=== PATIENT | female | born 1970 | race African-American/Black ===

== ENCOUNTER 2016-12-11 13:39 | Emergency (ER) | payer BC, OTHER ==
[2016-12-11 15:38] LABS: Basophils % (Auto) 0.5 % (0.0-1.8); Eosinophils % (Auto) 0.4 % (0.0-4.3); Hematocrit 39.4 % (30.3-42.9); Hemoglobin 13.3 gm/dl (10.1-14.3); Mean Corpuscular HGB Conc 34 % (30-34); Mean Corpuscular Hemoglobin 29 pg (28-32); Mean Corpuscular Volume 86 fl (79-97); Platelet Count 259 K/mm3 (140-440); Red Blood Count 4.58 M/mm3 (3.65-5.03); Red Cell Distribution Width 14.6 % (13.2-15.2); White Blood Count 9.3 K/mm3 (4.5-11.0)
[2016-12-11 16:00] LABS: Alanine Aminotransferase 20 units/L (7-56); Albumin 4.3 g/dL (3.9-5); Albumin/Globulin Ratio 1.1 %; Alkaline Phosphatase 80 units/L (35-129); Anion Gap 19 mmol/L; Bilirubin,Total 0.3 mg/dL (0.1-1.2); Blood Urea Nitrogen 9 mg/dL (7-17); Calcium 9.6 mg/dL (8.4-10.2); Carbon Dioxide 31 mmol/L (22-30); Glucose 144 mg/dL (65-100); Lipase 15 units/L (13-60); Potassium 4.3 mmol/L (3.6-5.0); Sodium 134 mmol/L (137-145); Total Protein 8.2 g/dL (6.3-8.2)
--- NOTE | 2016-12-11 18:02 | Emergency Department Report ---
ED Abdominal Pain HPI - General Chief Complaint: Abdominal Pain Stated Complaint: CONSTIPATION/ABD PAIN Time Seen by Provider: 12/11/16 16:48 Source: patient, family, EMS (ems notes not available at time of chart dictation), old records reviewed Mode of arrival: Stretcher Limitations: Language Barrier - History of Present Illness Initial Comments: This is a 46-year-old female, previously unknown to me. Patient had an outpatient hemorrhoidectomy performed on December 06. Presents to the ER with abdominal pain, abdominal distention, decreased defecation. Symptoms present for the past and a half to 2 days. They're constant. Patient was seen at another hospital yesterday, [facility], and presumptively diagnosed with constipation. She was discharged with magnesium citrate, and states that her abdomen is getting bigger, and she has mild nausea , and is not defecating. She reports that she is not . 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 MD Complaint: abdominal pain -: Gradual Location: diffuse Severity: moderate Severity scale (0 -10): 9 Quality: cramping Consistency: constant Improves With: rest Associated Symptoms: nausea, constipation - Related Data Allergies Allergy/AdvReac Type Severity Reaction Status Date / Time No Known Allergies Allergy Unverified 11/23/14 11:06 ED Review of Systems ROS: Stated complaint: CONSTIPATION/ABD PAIN Other details as noted in HPI Constitutional: malaise, weakness Eyes: denies: vision change ENT: denies: epistaxis Respiratory: denies: cough Cardiovascular: denies: chest pain Gastrointestinal: abdominal pain, constipation Genitourinary: as per HPI, other (urinary retention) Musculoskeletal: back pain Skin: denies: lesions Neurological: weakness Psychiatric: anxiety ED Past Medical Hx - Past Medical History Hx Hypertension: Yes - Surgical History Additional Surgical History: hemmorrhoid procedure ED Physical Exam - General Limitations: No Limitations General appearance: alert, in no apparent distress - Head Head exam: Present: atraumatic, normocephalic - Eye Eye exam: Present: normal appearance, EOMI. Absent: nystagmus - ENT ENT exam: Present: normal exam, normal orophraynx, mucous membranes moist, normal external ear exam - Neck Neck exam: Present: normal inspection, full ROM. Absent: tenderness, meningismus - Respiratory Respiratory exam: Present: normal lung sounds bilaterally. Absent: respiratory distress, wheezes, rales, rhonchi, stridor, chest wall tenderness - Cardiovascular Cardiovascular Exam: Present: regular rate, normal rhythm, normal heart sounds. Absent: bradycardia, tachycardia, irregular rhythm, systolic murmur, diastolic murmur, rubs, gallop - GI/Abdominal GI/Abdominal exam: Present: soft, distended, tenderness. Absent: pulsatile mass - Rectal Rectal exam: Present: normal inspection (hemorrhoidectomy site appears to be clean, mild ecchymosis noted. No obvious abscess, fluctuance.), normal rectal tone, other (good rectal tone, stool, from the rectal vault. During the rectal examination, I am escorted by nursing jefferson pauline) - Extremities Exam Extremities exam: Present: normal inspection, full ROM, normal capillary refill. Absent: tenderness, pedal edema, joint swelling, calf tenderness - Back Exam Back exam: Present: normal inspection, full ROM. Absent: tenderness, CVA tenderness (R), CVA tenderness (L), muscle spasm, paraspinal tenderness, vertebral tenderness - Neurological Exam Neurological exam: Present: alert, oriented X3, other (Extraocular movements intact. Tongue midline. No facial droop. Facial sensation intact to light touch in the V1, V2, V3 distribution bilaterally. 5 and 5 strength in 4 extremities.. Sensation is intact to light touch in 4 extremities.). Absent: motor sensory deficit - Psychiatric Psychiatric exam: Present: normal affect, normal mood - Skin Skin exam: Present: warm, dry, intact, normal color. Absent: rash ED Course Vital Signs 12/11/16 12/11/16 12/11/16 14:32 16:30 16:35 Temperature 98.1 F Pulse Rate 78 92 H Respiratory 14 20 18 Rate Blood Pressure 133/79 128/85 [Left] O2 Sat by Pulse 99 98 99 Oximetry 12/11/16 18:14 Temperature Pulse Rate Respiratory 18 Rate Blood Pressure [Left] O2 Sat by Pulse Oximetry - Reevaluation(s) Reevaluation #1: 12/11/16 18:00 Differential diagnosis: Constipation, obstipation, fecal impaction, bowel obstruction Assessment and plan: 46-year-old female with abdominal pain, distention, decreased defecation. Concerning for SBO. Plain films suggest numerous air- fluid levels, concerning for SBO. Patient will be given IV fluids, nausea medication, pain medication. CT scan with IV and oral contrast is ordered. We will reassess after scan has resulted. Patient reports not being . She states that she has not had a menstruation for 2 years. Reevaluation #2: 12/11/16 18:01 SODIUM 134 potassium 4.3 chloride 88.0 a Reevaluation #3: 12/11/16 21:39 case d/w Dr Camarillo, general surgeon for this hospital. ct findings were specifically discussed with him. he recommends that I contact the patient's general surgeon, Dr Clair Gonzales; [phone] Reevaluation #4: 12/11/16 22:17 case d/w Dr Clair Gonzales, patient's surgeon. Patient is most likely severely constipated. She tolerated oral contrast without really vomiting it up. He states it is acceptable and recommends to perform a soapsuds enema. He further reports that he can follow the patient up tomorrow morning at 9:00. Reevaluation #5: 12/11/16 23:24 patient was manually disimpacted by myself with great success. She had a large bowel movement with administration of a soapsuds enema. No active vomiting. Tolerated oral contrast without difficulty. She has closely arranged outpatient follow-up with her colorectal surgeon in the morning. Plan of care was discussed extensively with the patient's daughter, who verbalized understanding. ED Medical Decision Making - Lab Data Result diagrams: 12/11/16 15:09 12/11/16 15:09 Vital Signs 12/11/16 12/11/16 12/11/16 14:32 16:30 16:35 Temperature 98.1 F Pulse Rate 78 92 H Respiratory 14 20 18 Rate Blood Pressure 133/79 128/85 [Left] O2 Sat by Pulse 99 98 99 Oximetry Lab Results 12/11/16 12/11/16 Range/Units 15:09 15:09 WBC 9.3 (4.5-11.0) K/mm3 RBC 4.58 (3.65-5.03) M/mm3 Hgb 13.3 (10.1-14.3) gm/dl Hct 39.4 (30.3-42.9) % MCV 86 (79-97) fl MCH 29 (28-32) pg MCHC 34 (30-34) % RDW 14.6 (13.2-15.2) % Plt Count 259 (140-440) K/mm3 Lymph % (Auto) 12.4 L (13.4-35.0) % [place] % (Auto) 8.6 H (0.0-7.3) % Eos % (Auto) 0.4 (0.0-4.3) % Baso % (Auto) 0.5 (0.0-1.8) % Lymph # 1.2 (1.2-5.4) K/mm3 [place] # 0.8 (0.0-0.8) K/mm3 Eos # 0.0 (0.0-0.4) K/mm3 Baso # 0.0 (0.0-0.1) K/mm3 Seg Neutrophils % 78.1 H (40.0-70.0) % Seg Neutrophils # 7.3 (1.8-7.7) K/mm3 Carbon Dioxide 31 H (22-30) mmol/L BUN 9 (7-17) mg/dL Creatinine 0.5 L (0.7-1.2) mg/dL Estimated GFR > 60 ml/min BUN/Creatinine Ratio 18.00 % Glucose 144 H (65-100) mg/dL Calcium 9.6 (8.4-10.2) mg/dL Total Bilirubin 0.3 (0.1-1.2) mg/dL AST 19 (5-40) units/L ALT 20 (7-56) units/L Alkaline Phosphatase 80 (35-129) units/L Total Protein 8.2 (6.3-8.2) g/dL Albumin 4.3 (3.9-5) g/dL Albumin/Globulin Ratio 1.1 % Lipase 15 (13-60) units/L Critical care attestation.: If time is entered above; I have spent that time in minutes in the direct care of this critically ill patient, excluding procedure time. ED Disposition Clinical Impression: Constipation, Urinary obstruction Disposition: DISCHARGED TO HOME OR SELFCARE Is pt being admited?: No Does the pt Need Aspirin: No Condition: Stable Instructions: Acute Urinary Retention in Women (ED), Abdominal Pain (ED) Additional Instructions: Follow up with her colorectal surgeon, Dr. Douglas, tomorrow morning, between 9 AM to 9:30 AM. Office Locationdr gonzales [address] [place] [address], [address] [place] [address] Keep the Phillips catheter leg bag in place, and follow-up with a primary care doctor, colorectal surgeon, or urology specialist within the next week for a trial of void with Phillips catheter. Dr. Vo is a local primary care urology specialist. Dr. Duenas is a local primary care doctor. Return to the ER right away with new pain, worsened pain, migration of pain, fevers or chills, intractable nausea or vomiting, inability to tolerate liquid feeds, recurrent urinary retention. Referrals: ELIO SCHAFER MD [Staff Physician] - 3-5 Days PRIMARY MD MICHAEL [Primary Care Provider] - 3-5 Days MARTHA DENTON MD [Staff Physician] - 3-5 Days
[2016-12-11] MEDS: MORPHINE IV ONE (18:14)
[2016-12-11] MEDS: ZOFRAN IV ONE ×2 (18:15→21:16)
[2016-12-11] MEDS: NACL 0.9% 1000 ML 1,000 ML IV ONE (18:22)
[2016-12-11] MEDS: NACL ONE (20:45)
--- NOTE | 2016-12-11 21:20 | Cat Scan Report ---
FINAL REPORT PROCEDURE: CT ABDOMEN PELVIS W CON TECHNIQUE: Computerized axial tomography of the abdomen and pelvis was performed after the IV injection of iodinated nonionic contrast. HISTORY: abdominal pain, distention, possible sbo COMPARISON: No prior studies are available for comparison. FINDINGS: Visualized lower thorax: Atelectasis in the lingula. Liver: Diffuse fatty infiltration of liver. Spleen: Normal size and attenuation. Gallbladder and biliary system: Normal. Pancreas: Normal. Adrenals: Normal. Kidneys: Normal. GI tract: Contrast within the distended stomach. Dilated small bowel loops in the 3-3.5 centimeter range. Moderate scattered stool density primarily in the sigmoid colon. Perirectal stranding pelvis. Fluid filled loops of large bowel with air-fluid levels present in the descending colon 4.3 x 4.3 centimeters and cecum 5.4 centimeters. Possible normal caliber appendix Lymph nodes and mesentery: Normal. Vasculature: Normal. Bladder: Severely distended bladder. Consider bladder outlet obstruction. Reproductive organs: Atrophic. Peritoneum: No free fluid. Musculoskeletal structures: No significant abnormality. Other: Disc bulging L5-S1 with right paracentral component resulting in severe right neuroforaminal narrowing. Moderate disc bulging with central disc protrusion L4-5 suspected. IMPRESSION: Stool retention in the sigmoid colon with fluid filled large bowel with air-fluid levels and with moderate dilatation of small bowel loops with air-fluid levels. Findings suggest that of possible distal constipation with resultant obstipation or early/partial bowel obstruction. Followup is advised Severely dilated bladder Consider Phillips balloon catheter decompression
[2016-12-11] MEDS: LIDOCAINE VISCOUS 2% PO ONE (23:43)
[2016-12-11] MEDS: XYLOCAINE TOPICAL 4% TP ONE (23:43)
[2016-12-12 01:11] VITALS: BP 122/74
--- NOTE | 2016-12-12 09:04 | XRay Report ---
ABDOMEN, 2 VIEWS: HISTORY: Abdominal pain. FINDINGS: There are multiple mildly dilated loops of small bowel throughout the abdomen. Large air-fluid levels are identified on the upright view. No free air. There is a large amount of stool in the left hemicolon. The visualized lung bases are clear. Normal heart size. IMPRESSION: Findings concerning for a partial small bowel obstruction. Further evaluation with CT abdomen and pelvis with contrast is recommended.
== END 2016-12-12 01:13 | disposition home or self-care (01) ==
LOC: ED 13:39
DX: K59.00 Constipation, unspecified (principal); N13.9 Obstructive and reflux uropathy, unspecified; R11.0 Nausea; I10 Essential (primary) hypertension
CPT/HCPCS: 36415; 51702; 74020; 74177; 80053; 83690; 85025; 96361; 96374; 96375; 96376; 99285; J2270; J2405; J7030; Q9967